=== PATIENT | male | born 1975 | race Caucasian/White ===

== ENCOUNTER 2023-07-07 00:01 | Observation (INO) | payer OTHER ==
[2023-07-07] MEDS ORDERED: SODIUM CHLORIDE 0.9% 500 ML 500 ML IV STA (00:36)
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
[2023-07-07 00:45] LABS: Glucose,Whole Blood 100 mg/dL (70-110)
[2023-07-07 00:59] LABS: Anisocytosis Slight; HCT 26.1 % (39.0-53.0); HGB 7.5 gm/dL (13.0-17.5); Hypochromasia Marked; MCH 19.8 pg (25.0-35.0); MCHC 28.6 g/dL (31.0-37.0); MCV 69.1 fL (80.0-100.0); Mean Platelet Volume 6.7; Microcytosis Marked; Platelet Count 779 k/uL (150-450); Poikilocytosis Slight; RBC 3.78 m/uL (4.30-5.90); RDW 18.8 % (11.5-15.5)
[2023-07-07 01:07] LABS: ALT 18 U/L (4-49); AST 31 U/L (17-59); African American GFR (CKD) >90 (>60 ml/min/1.73 sqM); Albumin 3.8 g/dL (3.5-5.0); Alkaline Phosphatase 105 U/L (38-126); Anion Gap 13 mmol/L; Blood Urea Nitrogen 16 mg/dL (9-20); Calcium 8.3 mg/dL (8.4-10.2); Carbon Dioxide 22 mmol/L (22-30); Chloride 110 mmol/L (98-107); Creatine Kinase 89 U/L (55-170); Glucose 90 mg/dL (74-99); Non-African American GFR(CKD) >90 (>60 ml/min/1.73 sqM); Potassium 4.5 mmol/L (3.5-5.1); Sodium 145 mmol/L (137-145); Total Bilirubin 0.4 mg/dL (0.2-1.3); Total Protein 6.9 g/dL (6.3-8.2)
--- NOTE | 2023-07-07 01:10 | CT ---
EXAM: CT Head Without Intravenous Contrast CLINICAL HISTORY: ITS.REASON CT Reason: Neuro deficit, acute, stroke suspected TECHNIQUE: Axial computed tomography images of the head/brain without intravenous contrast. CTDI is 49.1 mGy and DLP is 1193 mGy-cm. This CT exam was performed using one or more of the following dose reduction techniques: automated exposure control, adjustment of the mA and/or kV according to patient size, and/or use of iterative reconstruction technique. COMPARISON: No relevant prior studies available. FINDINGS: Brain: Encephalomalacia from old infarction right middle cerebral artery distribution. No hemorrhage. No significant white matter disease. Ventricles: No acute findings. No ventriculomegaly. Bones/joints: Unremarkable. No acute fracture. Soft tissues: Unremarkable. Sinuses: Unremarkable as visualized. No acute sinusitis. Mastoid air cells: Unremarkable as visualized. No mastoid effusion. IMPRESSION: 1. No acute intracranial pathology. 2. Encephalomalacia from old infarction right middle cerebral artery distribution.
--- NOTE | 2023-07-07 01:17 | CT ---
EXAM: CT Angiography Head With Intravenous Contrast CLINICAL HISTORY: ITS.REASON CT Reason: Neuro deficit, acute, stroke suspected TECHNIQUE: Axial computed tomographic angiography images of the head with intravenous contrast. CTDI is 18.36 mGy and DLP is 21.6 mGy-cm. This CT exam was performed using one or more of the following dose reduction techniques: automated exposure control, adjustment of the mA and/or kV according to patient size, and/or use of iterative reconstruction technique. MIP reconstructed images were created and reviewed. COMPARISON: No relevant prior studies available. FINDINGS: Right internal carotid artery: No acute findings. Intracranial segment is patent with no significant stenosis. No aneurysm. Right anterior cerebral artery: Unremarkable. No occlusion or significant stenosis. No aneurysm. Right middle cerebral artery: Unremarkable. No occlusion or significant stenosis. No aneurysm. Right posterior cerebral artery: Unremarkable. No occlusion or significant stenosis. No aneurysm. Right vertebral artery: Unremarkable as visualized. Left internal carotid artery: No acute findings. Intracranial segment is patent with no significant stenosis. No aneurysm. Left anterior cerebral artery: Unremarkable. No occlusion or significant stenosis. No aneurysm. Left middle cerebral artery: Unremarkable. No occlusion or significant stenosis. No aneurysm. Left posterior cerebral artery: Unremarkable. No occlusion or significant stenosis. No aneurysm. Left vertebral artery: Unremarkable as visualized. Basilar artery: Unremarkable. No occlusion or significant stenosis. No aneurysm. Brain: Remote encephalomalacia of the inferior right frontal lobe and temporal lobes related to remote infarcts. IMPRESSION: 1. No large vessel intracranial occlusion. 2. No intracranial aneurysm. EXAM: CT Angiography Neck With Intravenous Contrast CLINICAL HISTORY: ITS.REASON CT Reason: Neuro deficit, acute, stroke suspected TECHNIQUE: Routine carotid CT angiography protocol was performed with intravenous contrast. NASCET criteria using the distal ICAs for comparison were used for evaluation of stenoses. CTDI is 12.7 mGy and DLP is 604.7 mGy-cm. This CT exam was performed using one or more of the following dose reduction techniques: automated exposure control, adjustment of the mA and/or kV according to patient size, and/or use of iterative reconstruction technique. MIP reconstructed images were created and reviewed. COMPARISON: None. FINDINGS: VASCULATURE: Right common carotid artery: Unremarkable. No occlusion or significant stenosis. No dissection. Right internal carotid artery: Unremarkable. Extracranial segment is patent with no occlusion or significant stenosis. No dissection. Right external carotid artery: Unremarkable. No occlusion. Right vertebral artery: Unremarkable. No occlusion or significant stenosis. No dissection. Left common carotid artery: Unremarkable. No occlusion or significant stenosis. No dissection. Left internal carotid artery: Unremarkable. Extracranial segment is patent with no occlusion or significant stenosis. No dissection. Left external carotid artery: Unremarkable. No occlusion. Left vertebral artery: Unremarkable. No occlusion or significant stenosis. No dissection. NECK: Bones/joints: Unremarkable. No acute fracture. Soft tissues: Unremarkable. Lung apices: Clear. CAROTID STENOSIS REFERENCE USING NASCET CRITERIA: % ICA stenosis = (1 - narrowest ICA diameter/diameter of distal cervical ICA) x 100. Mild - <50% stenosis. Moderate - 50-69% stenosis. Severe - 70-94% stenosis. Near occlusion - 95-99% stenosis. Occluded - 100% stenosis. IMPRESSION: Negative CTA neck.
[2023-07-07 01:19] LABS: Partial Thromboplastin Time 22.7 sec (22.0-30.0)
--- NOTE | 2023-07-07 02:13 | XR ---
EXAM: XR Chest, 1 View CLINICAL HISTORY: ITS.REASON XR Reason: altered mental status TECHNIQUE: Frontal view of the chest. COMPARISON: No relevant prior studies available. FINDINGS: Lungs: Unremarkable. No consolidation. Pleural space: Small right pleural effusion/thickening likely related to prior remote right posterior lateral rib fractures. Heart: Unremarkable. No cardiomegaly. Mediastinum: Unremarkable. Normal mediastinal contour. Bones/joints: See above. IMPRESSION: No acute cardiopulmonary disease.
[2023-07-07] MEDS ORDERED: ASPIRIN 81 MG PO STA (02:37)
[2023-07-07 04:14] LABS: Neutrophils % (M) 57 %; Nucleated Red Blood Cells 1 /100 WBC (0-0); Total Cells Counted 200
[2023-07-07 04:15] LABS: Eosinophils # (M) 0.22 k/uL (0-0.7); Lymphocytes # (M) 2.59 k/uL (1.0-4.8); Monocytes # (M) 0.44 k/uL (0-1.0); Neutrophils # (M) 4.22 k/uL (1.3-7.7); Target Cells Present; WBC 7.4 k/uL (3.8-10.6)
[2023-07-07 04:16] LABS: RBC Fragments Present
[2023-07-07] MEDS ORDERED: ATORVASTATIN 80 MG TAB PO STA (04:55)
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
[2023-07-07 05:40] LABS: Reticulocyte % 1.7 % (0.5-2.0)
[2023-07-07] MEDS: ASPIRIN 81 MG PO SCH (08:38)
[2023-07-07] MEDS ORDERED: ENOXAPARIN 40 MG/0.4 ML SYRINGE SQ SCH (09:00)
[2023-07-07 09:15] LABS: % Iron Saturation 1.98 (15.00-50.00); Ferritin 5.7 ng/mL (22.0-322.0)
--- NOTE | 2023-07-07 12:43 | CA ---
Transthoracic Echo Report Name: Adair Ramos Age: 48 Gender: M : 1975 Exam Date: 07/07/2023 09:13 Exam Location: [facility] Ht (in): 72 Wt (lb): 200 Ordering Physician: Phill Ca MD Attending/Referring Phys: Fixed Interest Dealer Cassidy Crawford [facility] Procedure CPT: Indications: tia Cardiac Hx: Technical Quality: Fair Contrast 1: Agitated Saline Total Dose (mL): 5 Contrast 2: Total Dose (mL): MEASUREMENTS (Male / Female) Normal Values 2D ECHO LV Diastolic Diameter PLAX 4.5 cm 4.2 - 5.9 / 3.9 - 5.3 cm LV Systolic Diameter PLAX 2.7 cm IVS Diastolic Thickness 1.1 cm 0.6 - 1.0 / 0.6 - 0.9 cm LVPW Diastolic Thickness 0.9 cm 0.6 - 1.0 / 0.6 - 0.9 cm LV Relative Wall Thickness 0.4 LVOT Diameter 2.0 cm Ascending Aorta Diameter 3.3 cm M-MODE Aortic Root Diameter MM 2.9 cm LA Systolic Diameter MM 3.3 cm LA Ao Ratio MM 1.1 AV Cusp Separation MM 2.4 cm DOPPLER AV Peak Velocity 125.0 cm/s AV Peak Gradient 6.2 mmHg AV Mean Velocity 91.0 cm/s AV Mean Gradient 3.5 mmHg AV Velocity Time Integral 22.7 cm LVOT Peak Velocity 99.2 cm/s LVOT Peak Gradient 3.9 mmHg LVOT Velocity Time Integral 21.0 cm LVOT Stroke Volume 66.7 cm??? LVOT Stroke Volume Index 31.3 ml/m??? LVOT Cardiac Index 2563.5 cm???/min???m??? AV Area Cont Eq vti 2.9 cm??? AV Area Cont Eq pk 2.5 cm??? Mitral E Point Velocity 63.3 cm/s Mitral A Point Velocity 84.5 cm/s Mitral E to A Ratio 0.7 MV Deceleration Time 126.6 ms LV E' Lateral Velocity 16.1 cm/s Mitral E to LV E' Lateral Ratio 3.9 LV E' Septal Velocity 9.3 cm/s Mitral E to LV E' Septal Ratio 6.8 Right Atrial Pressure 8.0 mmHg FINDINGS Left Ventricle Left ventricular cavity size normal. Left ventricular wall thickness normal. Normal left ventricular systolic function with no obvious regional wall motion abnormalities. Left ventricular ejection fraction is estimated at 60-65%. Right Ventricle Normal right ventricular size. Right Atrium Mild right atrial dilatation. Left Atrium Normal left atrial size. Negative agitated saline study. Mitral Valve Structurally normal mitral valve. Trace mitral regurgitation. Aortic Valve No aortic valve stenosis or regurgitation.trileaflet aortic valve. Tricuspid Valve Structurally normal tricuspid valve. No tricuspid regurgitation. Pulmonic Valve Pulmonic valve not well visualized. Pericardium Echo free space anterior to the right ventricle likely represents a fat pad. Aorta Normal size aortic root and proximal ascending aorta. CONCLUSIONS 1. Normal left ventricle size and systolic function 2. No evidence of shunting by bubble study 3. Trace mitral regurgitation Previewed by: Dr. Yusef Amaya MD (Electronically Signed) Final Date: 07 July 2023 12:42
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
[2023-07-07] MEDS: APIXABAN 5 MG TAB PO SCH ×2 (13:03→21:28)
[2023-07-07] MEDS: CYANOCOBALAMIN 1,000 MCG/ML 1 ML VIAL IM SCH (13:04)
[2023-07-07] MEDS ORDERED: DONEPEZIL 5 MG TAB PO SCH (21:00)
[2023-07-07] MEDS ORDERED: ATORVASTATIN 80 MG TAB PO SCH (21:00)
[2023-07-07] MEDS ORDERED: PANTOPRAZOLE 40 MG TABLET PO SCH (21:00)
[2023-07-07] MEDS ORDERED: MORPHINE SULFATE 2 MG/ML SYRINGE IVP STA (21:50)
--- NOTE | 2023-07-08 01:32 | EEG ---
ELECTROENCEPHALOGRAM REPORT PREAMBLE: This is a 48-year-old male with a history of stroke with mild residual left-sided symptoms, came with stroke-like symptoms. The patient has been told that he has possible seizures, was placed on Keppra, but currently not on. This study is performed to evaluate for any epileptiform activity. EEG FINDINGS: This is a 21-channel digital EEG recorded with video component, utilizing 10/20 international system with referential and bipolar montages. Background consists of well developed, well regulated, low to medium amplitude, 9 hertz alpha activity seen in bihemispheric region. Background is posterior dominant and is reactive to eye opening and closing. Photic driving response was not seen. Different stages of sleep were not clearly seen. No focal or generalized epileptiform activity was seen. IMPRESSION: This is a normal awake and drowsy EEG. No focal, lateralized or epileptiform activity was seen. MMODL / IJN: [id number] /
[2023-07-08] MEDS ORDERED: KETOROLAC 15 MG/ML 1 ML VIAL IVP STA (07:08)
[2023-07-08] MEDS: CYANOCOBALAMIN 1,000 MCG/ML 1 ML VIAL IM SCH (08:15)
[2023-07-08] MEDS: APIXABAN 5 MG TAB PO SCH (08:15)
[2023-07-08] MEDS: ASPIRIN 81 MG PO SCH (08:15)
[2023-07-08 08:24] VITALS: RESP 18; TEMP 98.2
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
[2023-07-08 12:42] LABS: ALT 18 U/L (4-49); AST 32 U/L (17-59); African American GFR (CKD) >90 (>60 ml/min/1.73 sqM); Albumin 4.1 g/dL (3.5-5.0); Alkaline Phosphatase 119 U/L (38-126); Anion Gap 12 mmol/L; Blood Urea Nitrogen 12 mg/dL (9-20); Calcium 9.2 mg/dL (8.4-10.2); Carbon Dioxide 21 mmol/L (22-30); Chloride 103 mmol/L (98-107); Glucose 91 mg/dL (74-99); Magnesium 1.8 mg/dL (1.6-2.3); Non-African American GFR(CKD) >90 (>60 ml/min/1.73 sqM); Potassium 4.7 mmol/L (3.5-5.1); Sodium 136 mmol/L (137-145); Total Protein 7.6 g/dL (6.3-8.2)
[2023-07-08 14:25] VITALS: BP 109/79; PULSE 82
[2023-07-08 15:22] LABS: Anisocytosis Slight; HCT 28.6 % (39.0-53.0); HGB 7.5 gm/dL (13.0-17.5); Hypochromasia Marked; MCH 19.9 pg (25.0-35.0); MCHC 26.1 g/dL (31.0-37.0); Mean Platelet Volume 7.7; Microcytosis Moderate; Platelet Count 670 k/uL (150-450); RBC 3.76 m/uL (4.30-5.90); WBC 4.5 k/uL (3.8-10.6)
[2023-07-08 15:28] LABS: MCV 76.1 fL (80.0-100.0)
[2023-07-08 23:33] LABS: Chol/HDL Ratio 1.79 Ratio; LDL Cholesterol,Calculated 47.7 mg/dL (0.0-131.0)
== END 2023-07-08 14:10 | disposition home or self-care (01) ==
LOC: EC 00:01 → INTOOBSV 02:42 → 1SOBS 02:42 → 3SCARD 14:07 → UNDODISIN 07-08 14:10
PROVIDERS: ADMIT Internal Medicine; ATTEND Internal Medicine
DX: R29.810 Facial weakness (principal); I69.354 Hemiplegia and hemiparesis following cerebral infarction affecting left non-dominant side; G40.909 Epilepsy, unspecified, not intractable, without status epilepticus; E53.8 Deficiency of other specified B group vitamins; D50.9 Iron deficiency anemia, unspecified; I69.398 Other sequelae of cerebral infarction; G93.89 Other specified disorders of brain; R20.0 Anesthesia of skin; D75.839 Thrombocytosis, unspecified; R25.2 Cramp and spasm; W05.0XXA Fall from non-moving wheelchair, initial encounter; Z79.01 Long term (current) use of anticoagulants; Z79.82 Long term (current) use of aspirin; Z79.899 Other long term (current) drug therapy; Z86.711 Personal history of pulmonary embolism; Z91.81 History of falling; Z86.14 Personal history of Methicillin resistant Staphylococcus aureus infection; Z89.611 Acquired absence of right leg above knee; Z89.612 Acquired absence of left leg above knee
CPT/HCPCS: 96361; 96372 ×2; 96374; 96375; 99291; 36415; 95816; 93005; 93306; 82747; 80061; 80053 ×2; 82607; 82728; 82550; 83540; 83550; 83735; 84484; 85025; 85027; 85610; 85045; 85730; 83036; 71045; 70496; 70450; 70498; G0378 ×3; J3420 ×2; J1650; J2270; J1885; Q9967